=== PATIENT | female | born 1950 | race Caucasian/White ===

== ENCOUNTER 2019-07-06 10:52 | Inpatient (IN) ==
--- NOTE | 2019-07-06 11:23 | Diag Imaging Result Doc PS360 ---
EXAM: CHEST-1 VIEW INDICATION: ams TECHNIQUE: One view COMPARISON: 10/16/2015 FINDINGS: There is a stable calcified granuloma at the left lung base. The lungs are grossly clear. There is no discrete pleural fluid collection or pneumothorax. The cardiomediastinal silhouette and central vasculature are grossly unremarkable. IMPRESSION: No evidence of acute pathology by plain radiograph. Electronically signed by David Swann 07/06/2019 11:24 AM
[2019-07-06 12:21] LABS: ALLEN TEST NO; BLOOD TYPE ARTERIAL; O2(CT) 18.9 mL/dL (15.0-23.0); O2HB 94.2 % (95.0-99.0); PCO2(98.6) 45 mmHg (35-45); PO2(98.6) 70 mmHg (60-100); SAMPLE BLOOD; SAO2 96.8 % (95.0-100.0); THB 14.3 g/dL (11.5-17.4); pH(98.6) 7.42 (7.35-7.45)
[2019-07-06 12:22] LABS: MODALITY ROOM AIR
[2019-07-06 12:48] LABS: BASO# 0.01 X1000 (0.0-0.2); BASO% 0.2 % (0.0-0.8); EOS# 0.16 X1000 (0.0-0.7); EOS% 2.5 % (0.0-10.0); HEMATOCRIT 45.4 % (37.0-47.0); HEMOGLOBIN 14.5 g/dL (12.0-16.0); LYMPH% 18.5 % (20.5-51.1); MCH 31.5 PG (27-31); MCHC 31.9 g/dL (33-37); MCV 98.7 FL (81-99); MONO# 0.51 X1000 (0.11-0.59); MONO% 7.9 % (1.7-9.3); MPV 13.5 FL (7.4-10.4); NEUT# 4.59 X1000 (1.4-6.5); NEUT% 70.9 % (42.2-75.2); PLT 154 X1000 (130-400); RDW 13.4 % (11.5-14.5); WBC 6.47 X1000 (4.8-10.8)
[2019-07-06 13:05] LABS: URINE SOURCE CATH
[2019-07-06 13:26] LABS: BILIRUBIN URINE SMALL (NEGATIVE); BLOOD URINE SMALL (NEGATIVE); COLOR YELLOW; GLUCOSE URINE NEGATIVE (NEGATIVE); KETONE URINE 10 mg/dL (NEGATIVE); LEUKOCYTES URINE LARGE (NEGATIVE); NITRITE URINE POSITIVE (NEGATIVE); PROTEIN URINE 30 mg/dL (NEGATIVE); TURBIDITY URINE HAZY (CLEAR); UR EPITHELIAL CELLS <10 /HPF (<10); URINE BACTERIA 4+ /HPF; URINE RBC <10 /HPF (<10); URINE WBC TNTC /HPF (<10); UROBILINOGEN URINE 6 mg/dL (NORMAL)
[2019-07-06 13:28] LABS: UR AMPHETAMINES QUAL PRESUMPTIVE POSITIVE (NONE DETECT); UR BARBITUATES QUAL NONE DETECTED (NONE DETECT); UR BENZODIAZEPIN QUAL PRESUMPTIVE POSITIVE (NONE DETECT); UR CANNABINOIDS QUAL NONE DETECTED (NONE DETECT); UR COCAINE QUAL NONE DETECTED (NONE DETECT); UR METHADONE QUAL NONE DETECTED (NONE DETECT); UR OPIATES QUAL NONE DETECTED (NONE DETECT); UR OXYCODONE QUAL NONE DETECTED (NONE DETECT); UR PCP QUAL NONE DETECTED (NONE DETECT)
[2019-07-06 13:38] LABS: URINE CRYSTALS NONE SEEN; URINE YEAST NONE SEEN
[2019-07-06 13:51] LABS: AGAP 14; ALB/GLOB RATIO 1.1; ALBUMIN 3.7 g/dL (3.5-5.0); ALKALINE PHOSPHATASE 138 U/L (32-104); BUN 9 mg/dL (8-22); CALCIUM 9.6 mg/dL (8.8-10.2); CHLORIDE 100 mmol/L (98-107); COSMO 285; CREATININE 0.8 mg/dL (0.5-0.9); ESTIMATED GFR > 60; GLUCOSE 117 mg/dL (70-104); GOT 25 U/L (10-30); GPT 14 U/L (10-36); POTASSIUM 3.4 mmol/L (3.5-5.1); SODIUM 143 mmol/L (136-145); TCO2 29 mmol/L (25-35); TOTAL BILIRUBIN 0.57 mg/dL (0.20-1.00)
[2019-07-06] MEDS ORDERED: NS 1,000 ML IV ONE (15:30)
[2019-07-06] MEDS ORDERED: ROCEPHIN 1 GM in NS 50 ML IV ONE (15:30)
--- NOTE | 2019-07-06 18:08 | PROVIDER DOCUMENTATION ---
This chart was entered by Dora Penaloza Scribe, acting as scribe for Julio Leonard MD. [id number] Abuse/Overdose - General Stated Complaint: overdose Time Seen by Provider: 07/06/19 10:53 Source: patient, EMS (first response) Unable to obtain history due to:: altered Allergies/Adverse Reactions: Allergies Allergy/AdvReac Type Severity Reaction Status Date / Time No Known Allergies Allergy Verified 10/16/15 15:02 Home Medications: Home Medication List Medication Instructions Recorded Confirmed Last Taken Type Gabapentin [Neurontin] 600 mg PO TID #0 09/21/14 11/09/18 11/08/18 20:00 Rx Buprenorphine/Naloxone S.l. 1 tab SL BID 09/12/15 11/09/18 11/08/18 20:00 History [Suboxone 2 mg/0.5 mg] Chlordiazepoxide [Librium] 10 mg PO DAILY 09/12/15 11/09/18 11/08/18 20:00 History - History of Present Illness-Drug/Alcohol Nature of Presenting Problem: 69 yowf presents to the ed via ems (first response) with possibility of suboxone overdose. per ems pt had 5 empty packets of sublingual suboxone packets on the floor where they found pt. pt is confused to time and place on exam and sts was lying in the floor because it helps her chronic back pain. per ems daughter told them she gets 18 pills every 2 weeks and yesterday pt had 19 pills and none today. ems sts pt had scissors and had cut up the packaging in the floor. pt is slow to answer questions and is disheveled in appearance This episode of drinking or use began:: unsure Severity: reports: moderate Situational problems related to:: reports: N/A Psychiatric Complaints: reports: altered mental status, confused. denies: hallucinating, paranoid, restlessness Associated Symptoms: reports: joint pain (hip pain and chronic back pain). denies: back/neck pain, chest pain, cough, fever/chills, shortness of breath, vomiting Any injuries associated with this episode of intoxication?: No Similar Symptoms Previously?: Yes Recently seen or treated by another doctor?: No - Substance Abuse Substance Use: reports: other (suboxone) Review of Systems - Adult - REVIEW OF SYSTEMS - ADULT ROS:: limited per condition Constitutional: denies: chills, fever Eyes: reports: no symptoms reported Ears, Nose, Mouth & Throat: reports: no symptoms reported Cardiovascular: denies: chest pain, palpitations Respiratory: denies: shortness of breath, wheezing Gastrointestinal: denies: diarrhea, nausea, vomiting Genitourinary: reports: no symptoms reported Musculoskeletal: reports: see HPI (both or chronic), back pain, joint pain Integumentary: reports: no symptoms reported Neurological: denies: dizziness/vertigo, headache/migraines Psychiatric: reports: see HPI, alcohol/drug dependence, depression Endocrine: reports: no symptoms reported Hematologic/Lymphatic: reports: no symptoms reported Allergic/Immunologic: reports: no symptoms reported All Other Systems: Reviewed and Negative Past History - Adult - PAST MEDICAL HISTORY-ADULT Review of Records: reports: Old Records Reviewed, Nursing Assessment Review, Medications Reviewed, Social history reviewed & non-contributory. Major Childhood Illnesses: reports: denies history Cardiovascular: reports: denies history Respiratory: reports: denies history Gastrointestinal: reports: denies history Obstetrical/Gynecological: reports: denies history Genitourinary: reports: denies history Musculoskeletal: reports: chronic pain Neurological: reports: denies history Psychiatric: reports: depression Endocrine/Immune: reports: denies history Other Conditions: reports: denies history - PRIOR SURGERIES/PROCEDURES Surgical/Procedure History: reports: hysterectomy, joint replacement, gastric bypass - IMMUNIZATION STATUS Childhood Immunizations: See Nurse Assessment Flu Vaccine: See Nurse Assessment - FAMILY HISTORY Family History: reviewed, not pertinent - SOCIAL HISTORY Smoking: cigarettes, greater than 1 pack/day Provider spent 3-5 mins advising pt. on dangers of tobacco.: Discussed manners to quit use, and f/u contacts for add'l counseling. Substance Use: alcohol, other (suboxone) Living Situation: alone Physical Exam-General - PHYSICAL EXAM-ADULT Exam Limited by: pt is slow in movements and confused on exam Initial Vital Signs Reviewed: Yes - CONSTITUTIONAL General Appearance: mild distress, slow to respond, other (confused in conversat ion) - EYES Eyes: PERRL/EOMI - HEAD, EARS, NOSE, MOUTH & THROAT HENMT: moist mucous membranes, dental decay - NECK Neck: full range of motion, normal inspection - RESPIRATORY Respiratory: chest non-tender, lungs clear, normal breath sounds - CARDIOVASCULAR Cardiovascular: normal peripheral pulses, regular rate, rhythm - CHEST (BREASTS) Chest/Breast: deferred - GASTROINTESTINAL (ABDOMEN) Abdominal Exam: normal bowel sounds, non tender, soft - GENITOURINARY Female Genitalia/Pelvic Exam: deferred Rectal Exam: deferred Hemoccult Exam: deferred - LYMPHATIC Lymphatic: no adenopathy - MUSCULOSKELETAL Back Exam: no CVA tenderness, no vertebral tenderness, other (c/o chronic pain) Extremity: normal capillary refill - SKIN Integumentary: normal color, normal turgor, warm/dry - NEUROLOGIC Neurologic: grossly normal - PSYCHIATRIC Psych/Mental Status: disoriented x 3, disheveled Progress - PLAN OF CARE/RESULTS Progress/Plan/Lab Results: Vital Signs - 8 hr 07/06/19 11:15 Temperature 97.6 F Pulse Rate 81 Respiratory Rate 14 Blood Pressure 113/70 O2 Sat by Pulse Oximetry 96 Laboratory Results - last 24 hr 07/06/19 07/06/19 07/06/19 12:10 12:30 12:30 WBC 6.47 RBC 4.60 Hgb 14.5 Hct 45.4 MCV 98.7 MCH 31.5 H MCHC 31.9 L RDW Std Deviation 13.4 Plt Count 154 MPV 13.5 H Immature Gran % (Auto) 0.0 Neut % (Auto) 70.9 Lymph % (Auto) 18.5 L [place] % (Auto) 7.9 Eos % (Auto) 2.5 Baso % (Auto) 0.2 Immature Gran # (Auto) 0.00 Neut # (Auto) 4.59 Lymph # (Auto) 1.20 [place] # (Auto) 0.51 Eos # (Auto) 0.16 Baso # (Auto) 0.01 Specimen Type ARTERIAL Sample Site R BRACHIAL pH 7.42 pCO2 45 pO2 70 HCO3 28.0 H Base Excess 4.0 H Oxyhemoglobin 94.2 L ABG O2 Sat (Calculated) 18.9 ABG O2 Saturation 96.8 ABG Carboxyhemoglobin 1.70 ABG Methemoglobin 1.0 Asa Test NO A-a O2 Difference 23.0 Total Hemoglobin 14.3 Lactate 0.70 Blood Gas Modality ROOM AIR FiO2 % 21.0 Sodium Potassium Chloride Carbon Dioxide Anion Gap BUN Creatinine Estimated GFR/1.73 m2 BUN/Creatinine Ratio Glucose Calculated Osmolality Calcium Total Bilirubin AST ALT Alkaline Phosphatase Troponin T High Sens Total Protein Albumin Globulin Albumin/Globulin Ratio Urine Source Urine Color Urine Turbidity Urine pH Ur Specific [place] Urine Protein Ur Glucose (Stick) Ur Ketones (Stick) Urine Blood Urine Nitrite Urine Bilirubin Urobilinogen Dipstick Urine Leukocytes Urine WBC (Auto) Urine RBC (Auto) U Epithel Cells (Auto) Urine Bacteria (Auto) Urine Crystals Small Round Cells Urine Casts Urine Yeast-like Cells Urine Opiates Screen Ur Oxycodone Screen Ur Methadone, Qual Ur Barbiturates Screen Ur Phencyclidine Scrn Ur Amphetamines Screen U Benzodiazepines Scrn Urine Cocaine Screen U Cannabinoids Screen Plasma/Serum Ethyl Alc 07/06/19 07/06/19 07/06/19 12:30 12:30 13:00 WBC RBC Hgb Hct MCV MCH MCHC RDW Std Deviation Plt Count MPV Immature Gran % (Auto) Neut % (Auto) Lymph % (Auto) [place] % (Auto) Eos % (Auto) Baso % (Auto) Immature Gran # (Auto) Neut # (Auto) Lymph # (Auto) [place] # (Auto) Eos # (Auto) Baso # (Auto) Specimen Type Sample Site pH pCO2 pO2 HCO3 Base Excess Oxyhemoglobin ABG O2 Sat (Calculated) ABG O2 Saturation ABG Carboxyhemoglobin ABG Methemoglobin Asa Test A-a O2 Difference Total Hemoglobin Lactate Blood Gas Modality FiO2 % Sodium 143 Potassium 3.4 L Chloride 100 Carbon Dioxide 29 Anion Gap 14 BUN 9 Creatinine 0.8 Estimated GFR/1.73 m2 > 60 BUN/Creatinine Ratio 11 Glucose 117 H Calculated Osmolality 285 Calcium 9.6 Total Bilirubin 0.57 AST 25 ALT 14 Alkaline Phosphatase 138 H Troponin T High Sens 15 Total Protein 7.0 Albumin 3.7 Globulin 3.3 Albumin/Globulin Ratio 1.1 Urine Source CATH Urine Color YELLOW Urine Turbidity HAZY Urine pH 6.0 Ur Specific [place] 1.030 Urine Protein 30 A Ur Glucose (Stick) NEGATIVE Ur Ketones (Stick) 10 A Urine Blood SMALL A Urine Nitrite POSITIVE A Urine Bilirubin SMALL A Urobilinogen Dipstick 6 A Urine Leukocytes LARGE A Urine WBC (Auto) TNTC A Urine RBC (Auto) <10 U Epithel Cells (Auto) <10 Urine Bacteria (Auto) 4+ Urine Crystals NONE SEEN Small Round Cells Not Reportable Urine Casts Not Reportable Urine Yeast-like Cells NONE SEEN Urine Opiates Screen Ur Oxycodone Screen Ur Methadone, Qual Ur Barbiturates Screen Ur Phencyclidine Scrn Ur Amphetamines Screen U Benzodiazepines Scrn Urine Cocaine Screen U Cannabinoids Screen Plasma/Serum Ethyl Alc 07/06/19 13:00 WBC RBC Hgb Hct MCV MCH MCHC RDW Std Deviation Plt Count MPV Immature Gran % (Auto) Neut % (Auto) Lymph % (Auto) [place] % (Auto) Eos % (Auto) Baso % (Auto) Immature Gran # (Auto) Neut # (Auto) Lymph # (Auto) [place] # (Auto) Eos # (Auto) Baso # (Auto) Specimen Type Sample Site pH pCO2 pO2 HCO3 Base Excess Oxyhemoglobin ABG O2 Sat (Calculated) ABG O2 Saturation ABG Carboxyhemoglobin ABG Methemoglobin Asa Test A-a O2 Difference Total Hemoglobin Lactate Blood Gas Modality FiO2 % Sodium Potassium Chloride Carbon Dioxide Anion Gap BUN Creatinine Estimated GFR/1.73 m2 BUN/Creatinine Ratio Glucose Calculated Osmolality Calcium Total Bilirubin AST ALT Alkaline Phosphatase Troponin T High Sens Total Protein Albumin Globulin Albumin/Globulin Ratio Urine Source Urine Color Urine Turbidity Urine pH Ur Specific [place] Urine Protein Ur Glucose (Stick) Ur Ketones (Stick) Urine Blood Urine Nitrite Urine Bilirubin Urobilinogen Dipstick Urine Leukocytes Urine WBC (Auto) Urine RBC (Auto) U Epithel Cells (Auto) Urine Bacteria (Auto) Urine Crystals Small Round Cells Urine Casts Urine Yeast-like Cells Urine Opiates Screen NONE DETECTED Ur Oxycodone Screen NONE DETECTED Ur Methadone, Qual NONE DETECTED Ur Barbiturates Screen NONE DETECTED Ur Phencyclidine Scrn NONE DETECTED Ur Amphetamines Screen PRESUMPTIVE POSITIVE A U Benzodiazepines Scrn PRESUMPTIVE POSITIVE A Urine Cocaine Screen NONE DETECTED U Cannabinoids Screen NONE DETECTED Plasma/Serum Ethyl Alc Orders Category Date Time Status cxr [CHEST-1 VIEW] [RAD] Stat Exams 07/06/19 10:57 Completed ABG [RESP] Routine Lab 07/06/19 12:10 Completed ALCOHOL BLOOD Stat Lab 07/06/19 12:30 Completed CBC WITH ELECTRONIC DIFF [HEME] Stat Lab 07/06/19 12:30 Completed COMPREHENSIVE METABOLIC PANEL [CHEM] Stat Lab 07/06/19 12:30 Completed TROPONIN T HIGH SENSITIVITY Stat Lab 07/06/19 12:30 Completed URINALYSIS W/POSS RFLX CULT [URINALYSIS] Stat Lab 07/06/19 13:00 Completed URINE CULTURE [RM] Routine Lab 07/06/19 13:00 Received URINE DRUG SCREEN Stat Lab 07/06/19 13:00 Completed URINE MANUAL MICROSCOPIC [URINALYSIS] Stat Lab 07/06/19 13:00 Completed 0.9% Sodium Chloride Inj [Ns] 1,000 ml Med 07/06/19 15:30 Discontinued IV 999 mls/hr CefTRIAXONE [Rocephin] 1 gm Med 07/06/19 15:30 Discontinued 0.9% Sodium Chloride Inj [Ns] 50 ml IV NOW EKG [EKG] Stat Ther 07/06/19 10:54 Ordered Result Diagrams: 07/06/19 12:30 07/06/19 12:30 - REASSESSMENT Reassessment #1 Time Reassessed: 12:46 (pt is sleeping in bed in no distress) Status: improving Reassessment Comment: family at bedside - XRAY 1 XRAY: Bilateral XRAY Study: Chest Impression: See EMR Report (EXAM: CHEST-1 VIEW INDICATION: ams TECHNIQUE: One view COMPARISON: 10/16/2015 FINDINGS: There is a stable calcified granuloma at the left lung base. The lungs are grossly clear. There is no discrete pleural fluid collection or pneumothorax. The cardiomediastinal silhouette and central vasculature are grossly unremarkable. IMPRESSION: No evidence of acute pathology by plain radiograph. Electronically signed by David Swann 07/06/2019 11:24 AM 07/06/19 1124 Interpreting Physician: David Swann MD Dictated Date/Time: 07/06/19 1123 cc: Julio Leonard MD; None,PCP) - CONSULTS/PCP/HOSPITALIST Notification #1 *Consult/PCP/Hospitalist*: Thea for Hospitalist Reason/Comments: asked that pt to be admitted by Night Hospitalist. Consult Disposition: Admit #2 Consult: Dr Olmedo Time Discussed: 19:07 Consult Disposition: Will see in ED, Admit Departure - Departure Date of Disposition Decision: 07/06/19 Time of Disposition Decision: 18:07 DIAGNOSIS: Substance abuse, Altered mental status Disposition: ADMITTED INPATIENT 09 Certified Medical Emergency: Emergent Condition: Fair Referrals and Follow-Ups: None,PCP [Primary Care Provider] - Discharge Education: Steps to Quit Smoking, [id number] - Critical Care Note This patient required my direct & personal management of CC.: No Attestation - Physician/ YOKO Attestation Patient care was provided by Advanced Practice Provider:: No The physician spent face to face time with patient:: Yes Advanced Practice Provider documentation review:: Supervising physician onsite and consulted in the evaluation and care of this patient. The physician did have a face to face encounter with the patient. This chart was documented by the indicated scribe, (Dora Penaloza Scribe) and accurately reflects the services I performed and decisions made by me, Julio Leonard MD, as attested by the provider's signature.
[2019-07-06] MEDS ORDERED: ZOFRAN IV PRN (19:07)
[2019-07-06] MEDS ORDERED: TYLENOL PO PRN (19:07)
[2019-07-06] MEDS ORDERED: ROCEPHIN 1 GM in NS 50 ML IV SCH (19:15)
[2019-07-06] MEDS ORDERED: LOVENOX SUBQ SCH (19:15)
[2019-07-06] MEDS: POTASSIUM CHLORIDE 10 MEQ in NS 1,000 ML IV SCH (19:53)
--- NOTE | 2019-07-06 20:06 | HISTORY AND PHYSICAL ---
PRIMARY CARE PHYSICIAN: No documented primary care physician. REASON FOR ADMISSION: Found confused on the floor of her house. HISTORY OF PRESENT ILLNESS: Ms. Kenyatta Mendoza is a 69-year-old woman with past medical history of clinical depression and chronic pain syndrome. She was brought into the ER after, I believe, she was discovered by her daughter lying on the floor with several used up sublingual patches of Suboxone on the floor. She was found to be confused at that time. The patient is unable to give me any meaningful history because she is mildly confused and required a lot of prompting to get any meaningful answers. She says she does not know how she got to the hospital. Initially she did not know where she was. She knows what year it is, but she does not know who the President is. She is able to follow basic commands. Currently, the only complaint she has is that she has pain in her hips when she stands. She denies any cardiorespiratory complaints or cough. No GI or complaints. Unfortunately, I am unable to get any meaningful history since there is no family member at bedside and the ER physician told me he tried to reach out to family to get some more information, but nobody responded to his calls. REVIEW OF SYSTEMS: Very limited due to patient's sensorium and cognition. ALLERGIES: No known allergies. HOME MEDICATION: Suboxone, I believe Librium and gabapentin, but these have not been confirmed. FAMILY HISTORY: She says there are some family members that have hardening of the arteries. SOCIAL HISTORY: Smokes 1 pack a day. No alcohol or illicit drug use according to the patient. She says she lives alone. SURGICAL HISTORY: She has had 2 hip surgeries, eye surgery, hysterectomy, cholecystectomy. LABORATORY WORK: White count 6000, hemoglobin and hematocrit 14 and 45, platelets 154,000 with normal differential. Potassium 3.4, BUN 9, creatinine 0.8, glucose 117, alkaline phosphatase 138 with normal transaminases. Oddly enough, no opioids in her UDS, but positive for amphetamines and benzodiazepines. Urinalysis shows 4+ bacteria, too numerous count WBCs, positive nitrite. Blood gas essentially is normal with a PO2 of 70, pH 7.42, pCO2 of 45 on room air. Chest film does not show any acute cardiopulmonary process. PHYSICAL EXAMINATION: VITAL SIGNS: Blood pressure 113/70, heart rate 81, respiratory rate 14, temp 97.6, 96% on room air. She is a thin, middle-aged woman who appears slightly older than stated age. She is a little drowsy, but oriented to place and time, i.e., what year it is. She has a flat affect. HEENT: Head is normocephalic, atraumatic. Eyes, SIMON, EOMI. She is anicteric. No pallor. ENT exam is grossly normal. No sign of cyanosis noted. NECK: Supple. No JVD or carotid bruit. No thyromegaly. CHEST: Clear when auscultated with good air entry in both lung felipe. CARDIOVASCULAR: First and second heart sounds are heard. No gallops, murmurs, or rubs. Rhythm is regular. ABDOMEN: Scaphoid, soft with mildly diffuse tenderness with no peritoneal signs. Bowel sounds are normal. RECTAL: Deferred at this time. EXTREMITIES: Good distal pulse volumes, regular, symmetrical. No edema clubbing, peripheral cyanosis. NEUROLOGIC: No asterixis. No focal deficits appreciated. SKIN: Mildly decreased turgor, but otherwise no breakdown, lesion, or erythema. MUSCULOSKELETAL EXAM: Is grossly normal. ASSESSMENT: 1. Toxic encephalopathy secondary to polysubstance abuse. 2. Hypokalemia. 3. Probable dehydration. 4. Urinary tract infection. 5. Chronic pain syndrome. PLAN: The patient will be aggressively hydrated. Electrolytes will be repleted. The patient has been given 1 time dose of Rocephin, and she will probably need a total of 3 doses altogether. We will withhold all potential neurotoxic medications and we will need to get medications revised once the list is obtained from the pharmacy tomorrow morning. This patient is not a safe discharge as it was found out that the patient was given, I believe 15 patches of Suboxone and pretty much has consumed almost, if not all patches as of today. Clerk needs to be notified and the patient's social situation needs to be thoroughly evaluated with assistance of the family members. cc: Mell Olmedo MD
[2019-07-07] MEDS: POTASSIUM CHLORIDE 10 MEQ in NS 1,000 ML IV SCH (01:02)
[2019-07-07 09:03] LABS: BASO# 0.01 X1000 (0.0-0.2); BASO% 0.2 % (0.0-0.8); EOS# 0.22 X1000 (0.0-0.7); EOS% 4.6 % (0.0-10.0); HEMATOCRIT 36.5 % (37.0-47.0); HEMOGLOBIN 11.4 g/dL (12.0-16.0); LYMPH# 1.24 X1000 (1.2-3.4); MCH 31.2 PG (27-31); MCHC 31.2 g/dL (33-37); MONO% 6.3 % (1.7-9.3); MPV 13.1 FL (7.4-10.4); NEUT% 62.9 % (42.2-75.2); PLT 153 X1000 (130-400); RBC 3.65 XMIL (4.2-5.4); RDW 13.4 % (11.5-14.5); WBC 4.77 X1000 (4.8-10.8)
[2019-07-07 09:14] LABS: AGAP 10; ALB/GLOB RATIO 1.2; ALBUMIN 2.8 g/dL (3.5-5.0); ALKALINE PHOSPHATASE 100 U/L (32-104); BUN 7 mg/dL (8-22); CALCIUM 8.4 mg/dL (8.8-10.2); CHLORIDE 110 mmol/L (98-107); COSMO 283; CREATININE 0.7 mg/dL (0.5-0.9); ESTIMATED GFR > 60; GLUCOSE 92 mg/dL (70-104); GOT 18 U/L (10-30); GPT 9 U/L (10-36); POTASSIUM 3.4 mmol/L (3.5-5.1); SODIUM 143 mmol/L (136-145); TCO2 23 mmol/L (25-35); TOTAL BILIRUBIN 0.38 mg/dL (0.20-1.00); TOTAL PROTEIN 5.1 g/dL (6.3-8.3)
--- NOTE | 2019-07-07 13:08 | EKG Report ---
Test Performed on : 07/07/2019 12:52:57 PM Test Reason : suboxone OD Blood Pressure : / mmHG Vent. Rate : 086 BPM Atrial Rate : 086 BPM P-R Int : 176 ms QRS Dur : 070 ms QT Int : 380 ms P-R-T Axes : 073 -28 037 degrees QTc Int : 454 ms Normal sinus rhythm. Low voltage QRS Borderline ECG When compared with ECG of 16-NOV-2015 15:18, No significant change was found Confirmed by Paxton BUTT, Hardeep Bernal ([id number]) on 07/10/2019 10:24:55 PM
[2019-07-07] MEDS ORDERED: ROCEPHIN 1 GM in NS 50 ML IV SCH ×4 (17:00)
--- NOTE | 2019-07-07 17:34 | PROGRESS NOTE ---
DATE: 07/07/2019 INTERVAL HISTORY: The patient is no longer somnolent waking up well following commands, and speaking coherently. Still agitated last night, but no longer this morning. No new complaints. Discussed with patient why she used so many Suboxone patches. She states that she uses 6 to 7 because her legs and hips continue to hurt so she would apply another patch, and then when they would continue to hurt after that she would apply another patch. She denies any kind of suicidal ideation or intention to harm herself. REVIEW OF SYSTEMS: Twelve point review of systems negative except as per interval history. LABORATORY: WBC 4.7, hemoglobin 11.4, hematocrit 36.5, and platelets 153,000. Sodium 143, potassium 3.4, bicarb 23, BUN 7, creatinine 0.7, and glucose 92. Urinalysis suggestive of possible urinary tract infection. UDS positive for amphetamines and benzo's. PHYSICAL EXAMINATION: Vital Signs: T-max 98, pulse 86, respirations 20, blood pressure 108/55, and O2 saturation 100% on room air. General: No acute distress. HEENT: Normocephalic, atraumatic. Moist mucous membranes. Cardiovascular: Regular rate and rhythm. No murmurs noted. Pulmonary: Clear to auscultation bilaterally. Abdomen: Soft, nontender, and nondistended. Bowel sounds positive. Extremities: Peripheral pulses intact. No clubbing, cyanosis, or edema. Well-healed fairly extensive surgical scars on the legs. Neurologic: Cranial nerves grossly intact. No focal deficits identified. Psychiatric: Essentially normal mood and affect. Very slightly tearful occasionally when asked about her Suboxone. Awake, alert, and oriented x3. ASSESSMENT AND PLAN: 1. Suboxone overdose. The patient does admit to using more Suboxone patches at one time than prescribed, but states she was just trying to get her pain under control. Denies any attempt to harm herself. EKG pending to evaluate for prolonged QTc prolongation. We will monitor on telemetry overnight to make sure she does not have any issues with arrhythmias, but if she remains stable from a cardiac perspective for today, then can likely be discharged home tomorrow. Attempted to contact the doctor who manages her suboxone but I had great difficulty finding an accurate number. once clinic stated that the doctor no longer worked there and another number had been disconnected. 2. Toxic encephalopathy secondary to Suboxone overdose, now resolved. 3. Likely UTI on Rocephin. We will likely discharge on Omnicef. Monitor. 4. Hypovolemia, resolved. 5. Chronic pain. Patient not complaining of pain currently, likely still has Suboxone in her system. We will try to treat with Toradol or other nonnarcotic. 6. Hypokalemia. Will replete and monitor. Fairly mild 3.4. 7. Tobacco abuse. Patient counseled on cessation. [facility]
[2019-07-07] MEDS: TYLENOL PO PRN (21:18)
[2019-07-08 12:01] VITALS: BP 131/74
[2019-07-08 13:03] LABS: HEMATOCRIT 40.8 % (37.0-47.0); HEMOGLOBIN 12.8 g/dL (12.0-16.0); MCH 30.7 PG (27-31); MCHC 31.4 g/dL (33-37); MCV 97.8 FL (81-99); MPV 13.1 FL (7.4-10.4); RBC 4.17 XMIL (4.2-5.4); RDW 13.3 % (11.5-14.5); WBC 5.23 X1000 (4.8-10.8)
[2019-07-08] MEDS: TYLENOL PO PRN (14:24)
[2019-07-08 14:36] LABS: AGAP 12; BUN 4 mg/dL (8-22); CALCIUM 9.2 mg/dL (8.8-10.2); CHLORIDE 107 mmol/L (98-107); COSMO 284; CREATININE 0.8 mg/dL (0.5-0.9); ESTIMATED GFR > 60; GLUCOSE 129 mg/dL (70-104); POTASSIUM 4.2 mmol/L (3.5-5.1); SODIUM 143 mmol/L (136-145); TCO2 24 mmol/L (25-35)
--- NOTE | 2019-07-09 14:37 | DISCHARGE SUMMARY ---
ADMISSION DATE: 07/06/2019 DISCHARGE DATE: 07/08/2019 DISCHARGE DIAGNOSES: 1. Unintentional Suboxone overdose. 2. Chronic pain. 3. Toxic encephalopathy. 4. Likely urinary tract infection. 5. Volume depletion. 6. Hypokalemia. 7. Tobacco abuse. HOSPITAL COURSE: The patient was brought into the ER after being found by her daughter lying on the floor, confused and minimally responsive. She was noted to have used all of her Suboxone tabs that she had left which was approximately 6 to 10. In the ER she was quite confused, but easily arousable following some commands. She never had significant respiratory depression. EKG was obtained which did not show any significant QT prolongation. Urinalysis was suggestive of UTI, so she was placed on Rocephin. Urine culture was pending at the time of discharge, but did show gram- negative rods. She was given supportive therapy with fluids, Rocephin and monitored on telemetry. Within 24 hours, the patient's encephalopathy resolved. She became awake, alert, and fully oriented. On discussion of events, she stated that she had tripped on a rug and had fallen, that her hips were hurting her more than usual so she took her Suboxone. When 1 did not relieve her pain she took another. When she still felt that her pain was not controlled she took more. The next thing she recalls after that is arousing in the hospital. She denies any suicidal ideation then or now. She states that she just wanted her pain controlled but that she realizes that this was dangerous and plans to come off Suboxone entirely. PDMP was reviewed. The patient appears to have only been prescribed 15 Suboxone films and appears to have gone through all of them over a period of 7 to 10 days. Over 3 to 4 conversations the patient repeatedly denied any depression or suicidal ideation, and as she did not have any further sedating medication at home, it is felt that she was okay to discharge home to follow up with her regular doctor, Dr. Nemo Fontenot. The patient was given a prescription for Omnicef. The patient had some minor electrolyte abnormalities, mostly low potassium which was repleted. She was thought to be a little dry on admission, but that resolved with IV fluids. She was eating, drinking, and breathing without difficulty on the day of discharge. DISCHARGE VITALS: Temperature 97.6 degrees, pulse 81, respirations 14, blood pressure 113/70, O2 saturation 96% on room air. DISCHARGE DIET: Regular. DISCHARGE MEDICATIONS: Cefdinir 300 mg p.o. b.i.d. for 3 more days, Tylenol 650 mg p.o. every 6 hours as needed for pain, gabapentin 600 mg p.o. t.i.d. as previously prescribed., Librium daily as previously prescribed. Greater than 30 minutes were spent arranging discharge and counseling the patient.
== END 2019-07-08 16:57 | disposition home or self-care (01) | DRG 917 ==
LOC: SUPCPDRO → ED 10:52 → EDIPHOLD 22:02 → SUATTDRO 22:02 → 3N 07-07 01:13
PROVIDERS: ATTEND Internal Medicine